=== PATIENT | male | born 1955 | race Caucasian/White ===

== ENCOUNTER 2019-05-09 05:57 | Observation (INO) ==
--- NOTE | 2019-05-01 10:38 | PAT Medication Instructions ---
Medication Instructions Date of Service May 01, 2019 Home Medications aspirin 81 mg PO QPM atorvastatin [Lipitor] 40 mg PO PM clopidogrel [Plavix] 75 mg PO QPM gabapentin 300 mg PO TID isosorbide mononitrate 60 mg PO QAM metoprolol tartrate 37.5 mg PO BID multivitamin 1 tab PO DAILY nitroglycerin [Nitrostat] 0.4 mg SUBLINGUAL UD PRN ASK your prescriber and surgeon aspirin 81 mg PO QPM clopidogrel [Plavix] 75 mg PO QPM DO NOT take the morning of surgery multivitamin 1 tab PO DAILY Take morning of surgery With a small sip of water, OTHERWISE NOTHING TO EAT OR DRINK AFTER MIDNIGHT: gabapentin 300 mg PO TID isosorbide mononitrate 60 mg PO QAM metoprolol tartrate 37.5 mg PO BID nitroglycerin [Nitrostat] 0.4 mg SUBLINGUAL UD PRN (if needed) Take evening before surgery atorvastatin [Lipitor] 40 mg PO PM gabapentin 300 mg PO TID metoprolol tartrate 37.5 mg PO BID nitroglycerin [Nitrostat] 0.4 mg SUBLINGUAL UD PRN (if needed) Other Notes If you have any questions please call us at [phone] or [phone] or [phone] or [phone]
--- NOTE | 2019-05-01 10:42 | Anesthesiology Consultation ---
Date of Service May 01, 2019 Assessment & Plan (1) Encounter for pre-operative examination: CARDIO CLEARANCE 04/23/19 = "to have C5-C6 cervical spine surgery on 05/[address] Solis...I am presuming Dr. Solis will want him off of ASA and Plavix x 5-7 days. Although this surgery is not a high risk one from a cardiac standpoint, the removal of all antiplatelet agents can occasionally give rise to symptoms and problems. Because he has not had new symptoms, I am not recommending stress testing at this time, but will do an echo to assess LV function. ...Check echo to assess LV function. If testing is unremarkable, pt can hold the Plavix and ASA if required by Dr. Solis." *echo showed normal EF and no valve disease. Chart Review Chart Review: Acceptable Risk for Surgery and Patient seen in [facility] Teaching & Discussion Instructed NPO after midnight before surgery, except medications with 15 cc of water. Medication instructions provided according to the PAT guidelines. ASA and Plavix instructions per cardio and surgeon. History Surgery Operation Date: 05/09/19 07:45 Proposed Procedures p C5-C6, C6-C7 Anterior Cervical Discectomy and Fusion, Spinal Cord Monitoring - Omid Solis, Height/Weight Height: 5 ft 11 in Weight: 105.1 kg Allergies Allergy/AdvReac Type Severity Reaction Status Date / Time No Known Allergies Allergy Verified 04/29/19 09:56 Medications Home Medications Medication Instructions Recorded Confirmed Last Taken aspirin 81 mg PO QPM 04/29/19 04/29/19 Unknown atorvastatin [Lipitor] 40 mg PO PM 04/29/19 04/29/19 Unknown clopidogrel [Plavix] 75 mg PO QPM 04/29/19 04/29/19 Unknown gabapentin 300 mg PO TID 04/29/19 04/29/19 Unknown isosorbide mononitrate 60 mg PO QAM 04/29/19 04/29/19 Unknown metoprolol tartrate 37.5 mg PO BID 04/29/19 04/29/19 Unknown multivitamin 1 tab PO DAILY 04/29/19 04/29/19 Unknown nitroglycerin [Nitrostat] 0.4 mg SUBLINGUAL UD PRN 04/29/19 04/29/19 Unknown Past Medical History Medical History CAD (coronary artery disease) s/p 1 stent 2000 GERD (gastroesophageal reflux disease) Hyperlipidemia Hypertension Myocardial Infarction 1999 Obesity Osteoarthritis Sleep apnea "MILD" NO DEVICE, WAS NEVER PRESCRIBED. Exercise / Class Metabolic Activity II 4-5 Yardwork/Stairs/Walk up hill (Denies CP or SOB with stairs, works as heavy equipment field mechanic) Past Family History Family History Other No significant family history Past Surgical History Surgical History History of colonoscopy History of esophagogastroduodenoscopy (EGD) History of heart artery stent 2000 (1 STENT PLACED) AT [place] History of nasal surgery CARTILAGE REPAIR History of tonsillectomy History of tooth extraction Hx of vasectomy Past Anesthesia History No Hx of Anesthesia Complications and No Family Hx of Anesthesia Complications History of PONV No Hx of PONV and No Hx of Motion Sickness STOP BANG Total 4 Social History Smoking Status: Former smoker tobacco type: cigarettes Smoking cigarettes per day: 20 YEARS AGO Do You Dip or Chew Tobacco: No Hx Alcohol Use: Yes Alcohol type: beer alcohol intake frequency: a few times a month Hx Substance Use: No substance use type: does not use Review of Systems Pt denies any recent chest pain, shortness of breath, fever. +URI/bronchitis 1st week of March, now resolved. +palpitations occasionally Physical Exam Vital Signs BP: 112/74 P: 67bpm SPO2: 95% RA T: 97.8 F R: 16 ENMT Mouth: + dental restorations (3 crowns) and + chipped teeth (one broken bicuspid upper L); no loose teeth Thyromental Distance: < 3.5 Finger Breadths (2.5) Mallampati Class: I Neck + shortened thyromental distance and + limited neck extension (VERY) Respiratory normal respiratory effort Auscultation: lungs clear to auscultation bilaterally Cardiovascular Rate/Rhythm: regular rate and regular rhythm Heart Sounds: no murmur Vessels: no carotid bruit Extremities: no edema Testing Laboratory Results 05/01/19 11:01 05/01/19 11:01 PT 10.4 Seconds (9.0-12.0) 05/01/19 11:01 INR 1.0 (0.9-1.1) 05/01/19 11:01 APTT 27.6 Seconds (21.0-31.0) 05/01/19 11:01 Urine Color Yellow 05/01/19 11:01 Urine Appearance Clear (Clear) 05/01/19 11:01 Urine pH 7.0 (4.5-7.5) 05/01/19 11:01 Ur Specific [place] 1.010 (1.000-1.030) 05/01/19 11:01 Urine Protein Negative (Negative) 05/01/19 11:01 Urine Glucose (UA) Negative (Negative) 05/01/19 11:01 Urine Ketones Negative (Negative) 05/01/19 11:01 Urine Nitrite Negative (Negative) 05/01/19 11:01 Ur Leukocyte Esterase Negative (Negative) 05/01/19 11:01 Blood Type O Positive 05/01/19 11:01 Antibody Screen NEGATIVE 05/01/19 11:01 Electrocardiogram Date: 05/01/19 Findings: + NSR @ (63) No significant change from 03/05/05 EKG. Chest X-Ray Date: 05/01/19 Findings: + NAD Echocardiogram Date: 05/01/19 EF: 60% Normal LV cavity dimensions, wall thickness and systolic function. No significant valvular heart disease.
--- NOTE | 2019-05-01 11:27 | XRay Report ---
XR chest Pre-admission PA/Lat CLINICAL HISTORY: Preoperative chest COMPARISON STUDY: No previous studies for comparison. FINDINGS: The heart is mildly enlarged. There is no failure. There is no focal pulmonary consolidatio n. There are no pleural effusions. There are minimal basilar atelectatic changes.[ IMPRESSION: No active disease in the chest. Electronically signed by: Matty Neal M.D. 05/01/2019 11:26 AM
[2019-05-01 11:54] LABS: Basophils # (auto) 0.02 K/uL (0-0.2); Basophils % (auto) 0.3 %; Eosinophils # (auto) 0.06 K/uL (0-0.5); Eosinophils % (auto) 0.9 %; Hemoglobin 13.9 g/dL (14.0-18.0); Immature Granulocytes # (auto) 0.01 K/uL (0.00-0.02); Immature Granulocytes % (auto) 0.1 %; Lymphocytes # (auto) 1.31 K/uL (1.2-3.4); Lymphocytes % (auto) 18.8 %; Mean Corpuscular Hgb Conc 33.1 g/dL (32-36); Mean Corpuscular Volume 94.4 fL (80-100); Mean Platelet Volume 11.3 fL (7.4-10.4); Monocytes # (auto) 0.61 K/uL (0.11-0.59); Monocytes % (auto) 8.8 %; Neutrophils # (auto) 4.95 K/uL (1.4-6.5); Neutrophils % (auto) 71.1 %; Platelet Count 196 K/uL (130-400); RDW Coefficient of Variation 13.3 % (11.5-14.5); RDW Standard Deviation 45.5 fL (36.4-46.3); Red Blood Count 4.45 M/uL (4.7-6.1); White Blood Count 6.96 K/uL (4.8-10.8)
[2019-05-01 12:20] LABS: Partial Thromboplastin Time 27.6 Seconds (21.0-31.0); Prothrombin Time 10.4 Seconds (9.0-12.0)
[2019-05-01 12:25] LABS: Appearance Urine Clear (Clear); Bilirubin Urine Negative (Negative); Color Urine Yellow; Glucose Urine UA Negative (Negative); Ketones Urine Negative (Negative); Leukocyte Esterase Urine Negative (Negative); Nitrite Urine Negative (Negative); Protein Urine Negative (Negative); Urobilinogen Urine Negative (Negative)
[2019-05-01 12:35] LABS: Creatinine Clr Calc Pharmacy 102.3 ml/min; Est GFR (African American) 104.2; Est GFR (Non-African American) 89.9; Potassium 4.3 mmol/L (3.5-5.1)
[2019-05-09] MEDS: LACTATED RINGER'S 1,000 ML IV SCH ×3 (06:20→17:10)
[2019-05-09] MEDS ORDERED: MIDAZOLAM HCL 1 MG/ML 2ML VIAL ONE (06:39)
[2019-05-09] MEDS ORDERED: fentaNYL citrate 100 MCG/2 ML VIAL ONE ×3 (06:39→09:37)
[2019-05-09] MEDS ORDERED: HYDROmorphone INJ 2 MG/ML SYR/VIAL ONE ×2 (06:45→07:07)
[2019-05-09] MEDS ORDERED: BACITRACIN INJ 50,000 UNIT VIAL ONE (06:58)
[2019-05-09] MEDS ORDERED: PROPOFOL IV EMULSION 10 MG/ML 100 ML VIAL IV ONE (07:07)
[2019-05-09] MEDS ORDERED: METOCLOPRAMIDE HCL INJ 5 MG/ML 2 ML VIAL ONE (07:09)
[2019-05-09] MEDS ORDERED: ONDANSETRON INJ 2 MG/ML 2 ML VIAL ONE (07:09)
[2019-05-09] MEDS ORDERED: ROCURONIUM BROMIDE 10 MG/ML 5 ML VIAL ONE (07:09)
[2019-05-09] MEDS ORDERED: LIDOCAINE HCL 2% 2 ML VIAL/AMP(20MG/ML) INFIL ONE (07:09)
[2019-05-09] MEDS ORDERED: DEXAMETHASONE SOD INJ 4 MG/ML VIAL ONE (07:09)
[2019-05-09] MEDS ORDERED: PROPOFOL IV EMULSION 10 MG/ML 20 ML VIAL IV ONE (07:09)
[2019-05-09] MEDS ORDERED: SUCCINYLCHOLINE CHLORIDE 20 MG/ML 10 ML VIAL ONE (07:09)
[2019-05-09] MEDS ORDERED: GLYCOPYRROLATE 0.2 MG/ML VIAL ONE (07:09)
[2019-05-09] MEDS ORDERED: NEOSTIGMINE METHYLSULFATE 1 MG/ML 10ML VIAL ONE (07:09)
[2019-05-09] MEDS: CEFAZOLIN 2000MG 2,000 MG/15 ML SYR IV SCH ×4 (07:47→23:50)
--- NOTE | 2019-05-09 08:00 | History & Physical Bridge Note ---
Date of Service May 09, 2019 History & Physical Bridge Note I have examined the patient, reviewed the History & Physical and in the interval since the performance of the History & Physical I have noted the following changes of clinical significance: no changes noted
--- NOTE | 2019-05-09 08:01 | History & Physical Report ---
Date of Service May 09, 2019 Assessment & Plan (1) Cervical stenosis of spinal canal: Anterior cervical discectomy and fusion C5-6 C6-7 Present on Admission?: Yes History of Present Illness Chief Complaint: Neck and arm pain Primary Care Provider: Andres Parra MD This is a 64-year-old male who presents with chronic persistent neck and arm pain. After failing extensive course of nonoperative care is here for surgical intervention. Allergies Allergy/AdvReac Type Severity Reaction Status Date / Time No Known Allergies Allergy Verified 05/09/19 06:27 Home Medications Home Medications Medication Instructions Recorded Confirmed Type aspirin 81 mg PO QPM 04/29/19 05/09/19 History atorvastatin [Lipitor] 40 mg PO PM 04/29/19 05/09/19 History clopidogrel [Plavix] 75 mg PO QPM 04/29/19 05/09/19 History gabapentin 300 mg PO TID 04/29/19 05/09/19 History isosorbide mononitrate 60 mg PO QAM 04/29/19 05/09/19 History metoprolol tartrate 37.5 mg PO BID 04/29/19 05/09/19 History multivitamin 1 tab PO DAILY 04/29/19 05/09/19 History nitroglycerin [Nitrostat] 0.4 mg SUBLINGUAL UD PRN 04/29/19 04/29/19 History Past Med/Surg History Medical History CAD (coronary artery disease) s/p 1 stent 2000 GERD (gastroesophageal reflux disease) Hyperlipidemia Hypertension Myocardial Infarction 1999 Obesity Osteoarthritis Sleep apnea "MILD" NO DEVICE, WAS NEVER PRESCRIBED. Surgical History History of colonoscopy History of esophagogastroduodenoscopy (EGD) History of heart artery stent 2000 (1 STENT PLACED) AT [place] History of nasal surgery CARTILAGE REPAIR History of tonsillectomy History of tooth extraction Hx of vasectomy Family History Other No significant family history Social History Preferred Language: Polish Communication Ability: Effective Advertising Sales Associate Required: No Beliefs That Will Affect Care: None Current Living Situation: Spouse Other Information That Helps Us Care for You: No Feels Safe at Home: Yes Safety Concerns: Feels Safe At This Time Smoking Status: Former smoker Tobacco Type: cigarettes Cigarettes Per Day: 20 YEARS AGO Do You Dip or Chew Tobacco: No Second Hand Exposure: No Tobacco Cessation Education Requested by Patient: No Hx Alcohol Use: Yes Alcohol type: beer Hx Substance Use: No Physical Exam Physical Exam: Patient is alert and oriented neurologically intact Results & Data Vital Signs (Past 12 Hours) Vital Signs Temp Pulse Resp BP Pulse Ox 05/09/19 06:39 36.4 C L 75 20 122/75 95
[2019-05-09] MEDS ORDERED: ePHEDrine sulfate 50 MG/ML AMP IV PRN (08:52)
[2019-05-09] MEDS ORDERED: ATROPINE SULFATE 0.1 MG/ML 10ML SYR IV PRN (08:52)
[2019-05-09] MEDS ORDERED: fentaNYL citrate 100 MCG/2 ML VIAL IV PRN (08:53)
[2019-05-09] MEDS ORDERED: HYDROmorphone INJ 2 MG/ML SYR/VIAL IV PRN (08:53)
[2019-05-09] MEDS ORDERED: ONDANSETRON INJ 2 MG/ML 2 ML VIAL IV PRN ×2 (08:53→11:44)
[2019-05-09] MEDS ORDERED: PROMETHAZINE HCL 12.5 MG in SODIUM CHLORIDE 0.9% 50 ML IV PRN (08:53)
[2019-05-09] MEDS ORDERED: FLOSEAL HEMOSTATIC MATRIX 10ML TOP ONE (09:33)
--- NOTE | 2019-05-09 09:44 | Operative Report ---
Post Operative Report Pre & Post Diagnosis Operation Date: 05/09/19 07:45 Pre-Op Diagnosis: Cervical spinal stenosis with radiculopathy Post-Op Diagnosis: Same Procedure Operation Date: 05/09/19 07:45 Actual Procedures #1 anterior cervical discectomy with bilateral foraminotomies C5-6 and C6-7. #2 anterior cervical arthrodesis C5-6 and C6-7. #3 placement of cortical allograft 9 mm in height filled with DBM at C5-6 and C6-7. #4 application zavala plate and screws from C5-C7. Surgeon Omid Solis, DO Mining Speculator Leilani Benton Estimated Blood Loss 10 Findings See Below The patient is 5 foot 11 inches tall weighing over 105 kg with a BMI of in excess of 32. The patient's significant size added marked increase in technical difficulty in patient positioning in order to perform the procedure. This added 40% increase in operative time. Specimens None Indications This is a 64-year-old male who presents with above-mentioned diagnosis after failing extensive course of nonoperative care like to go the above-mentioned procedure. Description of Procedure Patient was met with identified and informed consent obtained. Patient was then taken to the operative suite underwent intubation placed in supine position injected with a Robbins knitting machine fixer head. All bony prominences well-padded eyes inspected to ensure no external pressure placed upon the peer at this point the anterior cervical spine was prepped and draped in the normal sterile fashion. The assistance of fluoroscopy identified the see 6 vertebral body and a transverse incision was placed along the right anterior aspect of the cervical spinal sinus region. Sharp dissection with the assistance of bipolar electric arteries performed down to and exposing the anterior cervical spine from C5-C7. Verified my position with fluoroscopy. Then performed a complete discectomy of C5-6 out to the uncovertebral joints bilaterally. [place] distracting pins were utilized to assist in visualization. I removed all posterior annular fibers longitudinal ligament bilateral foraminotomies performed. Endplates were then burred to subcortical being bone and a 9 mm cortical allograft filled with DBM tapped in position. Then proceeded to see 6 7. Again complete discectomy performed out to the uncovertebral joints bilaterally. [place] distracting pins again utilized. Removed all posterior annular fibers longitudinal ligament bilateral foraminotomies performed. Endplates were then burred to subcortical bleeding bone. Again a 9 mm cortical allograft filled with DBM tapped in position. All distraction apparatus was removed all anterior ossified's burred with smooth cortical surface and a zavala plate and screws applied with the assistance of fluoroscopy. Incision was then copiously irrigated explored to ensure no damage to surrounding structures remaining bleeding. 10 round ARLETTE drain inserted. The incision was then closed with 2 Vicryl in a fashion of 4 Monocryl for final skin closure. Steri-Strip sterile dressings placed. Patient will continue to PACU stable condition. Please note Leilani Benton present throughout the entire procedure involved in patient positioning complex portions of the surgery and final skin closure. I attest to the content of the Intraoperative Record and any orders documented therein. Any exceptions are noted below.
--- NOTE | 2019-05-09 10:07 | Fluoroscopy Report ---
FL cervical 2-3V CLINICAL HISTORY: C5-7 ACDF COMPARISON STUDY: None. FLUOROSCOPY TIME: 10 seconds. 2 fluoroscopic spot images of the cervical spine. FINDINGS: Anterior cervical discectomy and fusion from C5 through C7. The hardware appears intact. IMPRESSION: Fluoroscopy provided for C5-C7 ACDF. Electronically signed by: Jensen Sarmiento M.D. 05/09/2019 10:05 AM
--- NOTE | 2019-05-09 11:21 | Anesthesiology Progress Note ---
Date of Service May 09, 2019 Anesthesia Post Procedure Vital Signs Vital Signs: Temp Pulse Pulse Resp BP Pulse Ox 05/09/19 11:10 36.2 C L 55 L 18 125/82 97 05/09/19 11:00 36.2 C L 58 L 18 130/76 97 05/09/19 10:50 36.3 C L 62 19 127/75 96 05/09/19 10:40 36.3 C L 52 L 16 131/85 97 05/09/19 10:30 36.0 C L 64 15 130/89 98 05/09/19 10:20 36.0 C L 62 12 132/90 99 05/09/19 10:10 36.0 C L 68 12 138/86 99 05/09/19 09:59 36.0 C L 82 10 L 165/97 H 98 05/09/19 06:39 36.4 C L 75 20 122/75 95 Transfer of Care Handoff Completed per policy Notes Mental Status: alert / awake / arousable and participated in evaluation Patient Amnestic to Procedure: Yes Nausea / Vomiting: adequately controlled Pain: adequately controlled Airway Patency, RR, SpO2: stable & adequate BP & HR: stable & adequate Hydration State: stable & adequate Anesthetic Complications: no major complications apparent and Pt Satisfied with anesthetic care
[2019-05-09] MEDS ORDERED: DO NOT ADMINISTER FLU VACCINE PRN (11:44)
[2019-05-09] MEDS ORDERED: NITROGLYCERIN SL 0.4 MG/TAB TAB SL PRN (11:44)
[2019-05-09] MEDS ORDERED: HYDROmorphone INJ 0.5 MG/0.5 ML SYR IV PRN (11:44)
[2019-05-09] MEDS ORDERED: DEXAMETHASONE SOD PHOSPHATE 8 MG in SYRINGE 0 ML IV PRN (11:44)
[2019-05-09] MEDS ORDERED: MAGNESIUM HYDROXIDE SUSP 30 ML UDC PO PRN (11:44)
[2019-05-09] MEDS ORDERED: NALOXONE HCL 0.4 MG/1 ML VIAL/CARP IV PRN (11:44)
[2019-05-09] MEDS ORDERED: LORazepam 0.5 MG/1 ML VIAL IV PRN (11:44)
[2019-05-09] MEDS ORDERED: LORazepam 0.5 MG TAB PO PRN (11:44)
[2019-05-09] MEDS ORDERED: DO NOT ADMINISTER PNEUMOCOCCAL VACCINE PRN (11:44)
[2019-05-09] MEDS ORDERED: DiphenhydrAMINE HCL 50 MG/ML VIAL IV PRN (11:44)
[2019-05-09] MEDS ORDERED: RACEPINEPHRINE 2.25% NEBU SOLN 0.5 ML VIAL INH PRN (11:44)
[2019-05-09] MEDS ORDERED: ACETAMINOPHEN 1,000 MG/100 ML VIAL IV PRN (11:44)
[2019-05-09] MEDS: OXYCODONE HCL IR 5 MG TAB (IMMEDIATE RELEASE) PO PRN ×3 (12:19→23:18)
[2019-05-09] MEDS ORDERED: SCOPOLAMINE 1.5 MG TDSY TD SCH (13:00)
[2019-05-09] MEDS: GABAPENTIN 300 MG CAP PO SCH ×2 (13:25→20:27)
[2019-05-09] MEDS: CHECK SCOPOLAMINE PATCH PLACEMENT SCH ×2 (15:19→23:50)
[2019-05-09] MEDS: DOCUSATE SODIUM 100 MG CAP PO SCH (20:26)
[2019-05-09] MEDS: METOPROLOL TARTRATE 25 MG TAB PO SCH (20:34)
[2019-05-09] MEDS ORDERED: ASPIRIN 81 MG ECTAB PO SCH (21:00)
[2019-05-09] MEDS ORDERED: ATORVASTATIN 40 MG TAB PO SCH (21:00)
[2019-05-10] MEDS: LACTATED RINGER'S 1,000 ML IV SCH (06:00)
--- NOTE | 2019-05-10 07:53 | Anesthesiology Progress Note ---
Date of Service May 10, 2019 Anesthesia Post Procedure Vital Signs Vital Signs: Temp Pulse Pulse Resp BP Pulse Ox Pulse Ox 05/10/19 07:40 53 L 14 97 05/10/19 06:41 36.4 C L 64 14 123/69 97 05/10/19 04:35 36.6 C 56 L 14 122/72 95 05/10/19 03:50 55 L 16 94 05/10/19 02:33 36.6 C 61 14 132/79 94 05/10/19 00:45 36.7 C 61 14 110/68 95 05/09/19 23:20 62 16 96 05/09/19 22:13 36.7 C 86 12 123/72 92 05/09/19 20:29 36.8 C 75 12 122/68 95 05/09/19 18:48 66 18 92 05/09/19 18:30 36.4 C L 75 14 122/73 93 05/09/19 16:33 36.4 C L 73 18 116/71 94 05/09/19 15:24 74 16 95 05/09/19 15:22 96 05/09/19 14:21 36.6 C 85 20 130/74 96 05/09/19 13:19 36.3 C L 79 16 118/77 95 05/09/19 12:40 36.2 C L 70 16 131/74 96 05/09/19 11:58 36.4 C L 70 16 125/73 98 05/09/19 11:42 53 L 16 99 05/09/19 11:30 36.5 C 55 L 18 136/85 97 97 05/09/19 11:10 36.2 C L 55 L 18 125/82 97 05/09/19 11:00 36.2 C L 58 L 18 130/76 97 05/09/19 10:50 36.3 C L 62 19 127/75 96 05/09/19 10:40 36.3 C L 52 L 16 131/85 97 05/09/19 10:30 36.0 C L 64 15 130/89 98 05/09/19 10:20 36.0 C L 62 12 132/90 99 05/09/19 10:10 36.0 C L 68 12 138/86 99 05/09/19 09:59 36.0 C L 82 10 L 165/97 H 98 Pain Intensity Bilateral Neck: Pain Intensity: 7 Notes Mental Status: alert / awake / arousable and participated in evaluation Patient Amnestic to Procedure: Yes Nausea / Vomiting: adequately controlled Pain: adequately controlled Airway Patency, RR, SpO2: stable & adequate BP & HR: stable & adequate Hydration State: stable & adequate Anesthetic Complications: no major complications apparent and Pt Satisfied with anesthetic care
[2019-05-10] MEDS: OXYCODONE HCL IR 5 MG TAB (IMMEDIATE RELEASE) PO PRN (08:42)
[2019-05-10] MEDS: CHECK SCOPOLAMINE PATCH PLACEMENT SCH (08:43)
[2019-05-10] MEDS: CEFAZOLIN 2000MG 2,000 MG/15 ML SYR IV SCH (08:43)
[2019-05-10] MEDS: METOPROLOL TARTRATE 25 MG TAB PO SCH (08:43)
[2019-05-10] MEDS: GABAPENTIN 300 MG CAP PO SCH (08:43)
[2019-05-10] MEDS: DOCUSATE SODIUM 100 MG CAP PO SCH (08:44)
[2019-05-10] MEDS ORDERED: ISOSORBIDE MONO EXTENDED REL 60 MG TABCR PO SCH (09:00)
[2019-05-10] MEDS ORDERED: MULTIVITAMIN TAB PO SCH (09:00)
--- NOTE | 2019-05-10 14:57 | Discharge Summary ---
Date of Service May 10, 2019 Admission HPI Per Admitting Provider This is a 64-year-old male who presents with chronic persistent neck and arm pain. After failing extensive course of nonoperative care is here for surgical intervention. Principal Diagnosis Cervical spinal stenosis with radiculopathy Discharge Data Allergies Allergy/AdvReac Type Severity Reaction Status Date / Time No Known Allergies Allergy Verified 05/09/19 06:27 Procedures Performed Operation Date: 05/09/19 07:45 Actual Procedures p #1 anterior cervical discectomy with bilateral foraminotomies C5-6 and C6-7. #2 anterior cervical arthrodesis C5-6 and C6-7. #3 placement of cortical allograft 9 mm in height filled with DBM at C5-6 and C6-7. #4 application zavala plate and screws from C5-C7; use of spinal cord monitoring(Not Applicable) - Omid Solis DO Ordered Studies 05/09/19 07:45 FL cervical 2-3V Routine FL fluoroscopy <1hr Routine Hospital Course (1) Cervical stenosis of spinal canal: Patient underwent anterior cervical discectomy and fusion tolerated as well as taken to orthopedic for postoperative. Postop day 1 he was swallowing well no hoarseness arm symptoms markedly improved ARLETTE drain decreasing appropriately subsequent discharge home. Discharge orders and instructions can be found chart for further review. Total Time Total Time Spent Total Time Spent (In Minutes): 20 minutes Discharge Plan Discharge Items Patient Disposition: Home - Self-Care Reason For Visit: Spinal Stenosis, Cervical Region Discharge Diagnosis: Cervical spinal stenosis with radiculopathy Discharge Goals: Decrease discomfort Activity: Per 'Additional Instructions' section Non-emergency contact: Primary Care Provider Call non-emergency contact if: you have any medication questions Follow-up/Referrals: Andres Parra MD [Primary Care Provider] - Diet: Regular Addtl Provider Instructions: ACTIVITY RECOMMENDATIONS: SELF CARE INSTRUCTIONS AFTER CERVICAL FUSIONS 1. No smoking. Smoking drastically decreases the chance of a solid fusion. 2. No bending, lifting more than 5 pounds, or twisting (roll like a log when turning in bed). 3. You may shower 3 days after surgery. Thoroughly dry wound. Do not soak in the tub. 4. Cervical collar: Must be worn at all times including sleeping. You may remove the brace only to bath, eat and if you are sitting in a recliner. 5. Please walk as much as you can for exercise. Gradually increase the distance that you walk as your endurance increases. SPECIAL CARE INSTRUCTIONS: VERY IMPORTANT TO READ AND REVIEW A. Do not take any anti-inflammatory medications (i.e. Indocin, Advil, Aspirin, Naprosyn, Aleve, Motrin, etc.) as these may inhibit the chance of a solid fusion. Tylenol is okay to take. B. Your surgical incision has been closed with a cosmetic suture under the skin that will dissolve in about 6 weeks. In 14 days, you can use a pair of clean scissors and cut the suture that is left outside of the skin at the ends of your incision. C. Complications are uncommon, but please contact us if you have any signs or symptoms of: 1. wound infection (fever higher than 102.5 degrees F, redness, separation of wound, drainage, or increasing pain from the incision) 2. blood clots in legs (pain, swelling, redness and warmth in legs) 3. urinary tract infection (fever higher than 102.5 degrees, burning upon urination or increased frequency of urination) 4. nerve problems (inability to walk on your toes or heels, numbness, loss of bowel or bladder control) 5. any other symptoms that concern you. D. Please call the office at if you have any concerns or questions about your operation or recovery. MANAGING PAIN AFTER SPINAL SURGERY 1. Narcotic medication is intended for short-term use and will be provided for surgical pain. Surgical pain usually lasts for a period of 4-6 weeks. Narcotic medication includes Percocet, Vicodin, Darvocet, Tylenol #3 or Lortab. 2. Longer-term pain is more appropriately treated with non-narcotic medication such as Tylenol ES. 3. Muscle spasm is not appropriately treated with narcotics. Muscle relaxers such as Soma, Flexeril or Skelaxin can be used along with Tylenol ES. 4. Remember that we all live with some "aches and pains". This is not unusual or uncommon after an injury or as we get older. 5. We will provide appropriate medication within the normal guidelines of their prescribed use. We will also be very cautious and aware of potential abuse and extended duration of patients' medication needs. 6. Please allow 2-3 days to process refills. Prescriptions will not be mailed but must be picked up at the office. FOLLOW UP VISIT: Keep your scheduled follow-up appointment. Any questions, please call the office at . Prescriptions: New oxycodone 5 mg Tablet 5 mg PO Q4H PRN (Reason: Pain) Qty: 20 RF: 0 Continued multivitamin Tablet 1 tab PO DAILY RF: 0 atorvastatin [Lipitor] 40 mg Tablet 40 mg PO PM RF: 0 clopidogrel [Plavix] 75 mg Tablet 75 mg PO QPM RF: 0 aspirin 81 mg Tablet,Delayed Release (Dr/Ec) 81 mg PO QPM RF: 0 isosorbide mononitrate 60 mg Tablet Extended Release 24 Hr 60 mg PO QAM RF: 0 nitroglycerin [Nitrostat] 0.4 mg Tablet, Sublingual 0.4 mg sublingual UD PRN (Reason: Chest Pain) RF: 0 gabapentin 300 mg Capsule 300 mg PO TID RF: 0 metoprolol tartrate 25 mg Tablet 37.5 mg PO BID RF: 0 Stand-Alone Forms: Conject, Opioid Pain Management [facility]/Other Patient Handouts: Spine Cervical Probs Tx, Surgery Cervical Disk Recovery, Neck Cervical Spine Discharge Orders: Discharge Order (Routine); Ordered 05/10/19 Ordered By: Omid Solis Admission Data Admit Date/Time: 05/09/19 09:47 Attending Provider: Omid Solis Admit Provider: Omid Solis Primary Care Provider: Andres Parra Service: Surgical Services Other Interventions: Discharge Summary Assessment (RN) Last Done: 05/10/19 10:47 DC Date/Time DO NOT enter until pt leaves facility: 05/10/19 13:58
[2019-05-11] MEDS ORDERED: POLYETHYLENE (MIRALAX) 17 GM PACK PO PRN (09:47)
[2019-05-11] MEDS ORDERED: BISACODYL 5 MG TABEC PO PRN (09:47)
== END 2019-05-10 13:58 | disposition home or self-care (01) ==
LOC: 3E 05:57 → ASU 05:57